=== PATIENT | female | born 1940 | race Caucasian/White ===

== ENCOUNTER → 2016-10-06 | Outpatient (CLI) | payer MEDICARE ==
[~2016-10-06] MED LIST: COLSALIDE IMPR0.6 MG PO; Catapres-Tts 10.1 MG PO; FLONASE 0.05% 121 EA NAS; HYDROCODONE BIT1 T11 PO; HYDRODIURIL25 MG PO; LORAZEPAM1 MG PO; LYRICA150 MG PO; Magnesium Oxid400 MG PO; OCUVITE1 TA1 PO; OSCAL,OYSTER S500 MG PO; PREDNICOT20 MG PO; SYNTHROID0.088 MG PO; TOPROL XL200 MG PO; VIBRAMYCIN100 MG PO; VICODIN 5/500 505 MG PO
== END | disposition home or self-care (01) ==
LOC: MRI 12:37
DX: M51.36 Other intervertebral disc degeneration, lumbar region (principal); M51.26 Other intervertebral disc displacement, lumbar region; M47.896 Other spondylosis, lumbar region; M40.46 Postural lordosis, lumbar region; M48.06 Spinal stenosis, lumbar region

== ENCOUNTER 2016-10-13 14:14 | Inpatient (IN) | payer MEDICARE ==
[~2016-10-13] VITALS: Ht 180.3 cm; Wt 93.0 kg
--- NOTE | ~2016-10-13 | WRIGHTHP ---
[place], [place] PATIENT HISTORY AND PHYSICAL EXAM NAME: DAVY SILVA [facility] #: [id number] UNIT #: [id number] ROOM: 506 DOCTOR: JILLIAN LLAMAS MD BIRTHDATE: [birth year] DOS: 10/13/2016 HISTORY OF PRESENT ILLNESS: This patient is 76 years old. The patient states that she has had some chest pain for the last 2 days, it came as sharp pain, sometimes feels like somebody jabbing inside her chest. She denies having any shortness of breath. Does not have any fever, cough, does not have any pleuritic pain or leg swelling. She was seen by Dr. Crowley recently, was started on allopurinol for gouty arthritis and the legs are feeling better. PAST MEDICAL HISTORY: Significant for: 1. Last hospitalization in 12/2005 for cholecystectomy. 2. History of pneumonia. 3. Benign hypertension. 4. Peripheral neuropathy. MEDICATIONS: She is on are allopurinol 300 mg daily, vitamin C 1000 units daily, atorvastatin 20 daily, Os-Jai 500 t.i.d., vitamin D 2000 units daily, cholestyramine 4 grams daily, Catapres 0.1 mg daily, levothyroxine 0.75 mcg daily, lorazepam 1 mg t.i.d., metoprolol 200 mg daily, Lyrica 150 b.i.d., Carafate 1 gram t.i.d. SOCIAL HISTORY: Nonsmoker. PHYSICAL EXAMINATION: GENERAL: She is awake and alert and oriented. VITAL SIGNS: Temperature 98.2, pulse is 72, respirations 20, blood pressure 112/68. NECK: Supple. No lymph nodes. LUNGS: Diminished breath sounds, clear. HEART: Regular. ABDOMEN: Obese, soft, nontender. EXTREMITIES: Without any edema, rebound tenderness over the chest wall. LABORATORY DATA: EKG is unremarkable. ASSESSMENT AND PLAN: 1. The patient presents with precordial chest pain. A Cardiology consultation was obtained. She has significant risk factors being hypertensive, will benefit from echocardiogram as well as a stress test, so far rule out HI protocol was done, shows no evidence of any ongoing issue. 2. Benign hypertension, controlled. If the stress test is negative, the patient should be able to go home and follow up with PCP. [place], [place] PATIENT HISTORY AND PHYSICAL EXAM NAME: DAVY SILVA UNIT #: [id number] ROOM: 506 DOCTOR: JILLIAN LLAMAS MD BIRTHDATE: [birth year] JILLIAN LLAMAS MD CM:HISPHYS:PATIENT HISTORY AND PHYSICAL EXAMINATION [id number] JILLIAN LLAMAS MD 10/14/16 1548 interface
[2016-10-13 14:22] VITALS: BP 160/61
[2016-10-13] MEDS ORDERED: VITAMIN C1000 M5 PO (14:30)
[2016-10-13] MEDS ORDERED: VITAMIN D32000 UNIT PO (14:30)
[2016-10-13] MEDS ORDERED: LIPITOR20 MG PO (14:30)
[2016-10-13 14:31] LABS: BASO % 0.3 % (0.0-1.0); EOS # 0.4 10*3/uL (0.0-0.4); HEMATOCRIT 37.9 % (37.0-47.0); HEMOGLOBIN 12.4 g/dl (12.0-16.0); LYMPH # 1.4 10*3/uL (1.3-4.4); LYMPH % 15.9 % (27.0-41.0); MEAN CELL VOLUME 88.6 fl (81.0-99.0); MEAN CORPUSCULAR HGB CONC 32.7 g/dl (33.0-37.0); MEAN PLATELET VOLUME 10.4 fl (9.6-12.3); MONO # 0.6 10*3/uL (0.1-1.0); MONO % 7.1 % (3.0-9.0); NEUT # 6.4 10*3/uL (2.3-7.9); NEUT % 72.2 % (47.0-73.0); PLATELET COUNT AUTOMATED 272 10*3/uL (130-400); RED BLOOD COUNT 4.28 10*6/uL (4.10-5.10); RED CELL DISTRI WIDTH 13.2 % (0-14.5); WHITE BLOOD COUNT 8.9 10*3/uL (4.8-10.8)
[2016-10-13] MEDS ORDERED: CHOLESTYRAMINE P4 GM PO (14:31)
[2016-10-13] MEDS ORDERED: ALLOPURINOL300 MG PO (14:31)
[2016-10-13] MEDS ORDERED: Carafate1 GM PO (14:32)
[2016-10-13 14:42] LABS: PROTHROMBIN TIME 10.9 SECONDS (9.0-12.4)
[2016-10-13 14:48] LABS: ALBUMIN 3.6 gm/dl (3.1-4.5); ALKALINE PHOSPHATASE 88 U/L (45-117); BILIRUBIN, TOTAL 0.5 mg/dl (0.2-1.0); BUN 19 mg/dl (7-24); CARBON DIOXIDE 25 mmol/L (21-32); CHLORIDE 105 mmol/L (98-107); EST GLOM FILT AFRICAN AMERICAN 53 ml/min; GLUCOSE 114 mg/dL (65-99); MAGNESIUM 1.5 mg/dL (1.5-2.1); POTASSIUM 4.4 mmol/L (3.5-5.1); SGOT/AST 19 IU/L (3-35); SGPT/ALT 19 U/L (12-78); SODIUM 141 mmol/L (136-145); TOTAL PROTEIN 7.5 gm/dL (6.4-8.2)
[2016-10-13 14:51] LABS: TROPONIN I < 0.015 ng/ml (<0.045)
[2016-10-13 15:30] VITALS: BP 142/80
[2016-10-13 16:04] VITALS: BP 129/80
[2016-10-13 16:47] VITALS: BP 132/84
[2016-10-13 18:10] VITALS: BP 165/78
[2016-10-13 20:00] VITALS: BP 143/68
[2016-10-14] VITALS: BP 128/78
[2016-10-14 08:00] VITALS: BP 118/70
[2016-10-14 12:00] VITALS: BP 112/68
== END 2016-10-14 15:37 | disposition left against medical advice (07) | DRG 206 ==
LOC: ED 14:14 → EDHOLD 16:10 → 5E 17:09
PROVIDERS: Emergency Medicine
DX: M94.0 Chondrocostal junction syndrome [Tietze] (principal); G62.9 Polyneuropathy, unspecified; Z53.21 Procedure and treatment not carried out due to patient leaving prior to being seen by health care provider; I10 Essential (primary) hypertension; Z87.01 Personal history of pneumonia (recurrent); Z79.899 Other long term (current) drug therapy

== ENCOUNTER → 2016-12-01 | Outpatient (CLI) | payer MEDICARE ==
[~2016-12-01] MED LIST changes: +ALLOPURINOL300 MG PO; +CHOLESTYRAMINE P4 GM PO; +Carafate1 GM PO; +LIPITOR20 MG PO; +VITAMIN C1000 M5 PO; +VITAMIN D32000 UNIT PO
[2016-12-01 12:58] LABS: BASO % 0.4 % (0.0-1.0); EOS # 0.2 10*3/uL (0.0-0.4); EOS % 1.9 % (1.0-4.0); HEMOGLOBIN 12.2 g/dl (12.0-16.0); IG # 0.1 10*3/uL (0.0-0.1); LYMPH # 1.3 10*3/uL (1.3-4.4); LYMPH % 12.3 % (27.0-41.0); MEAN CELL VOLUME 90.7 fl (81.0-99.0); MEAN CORPUSCULAR HGB 29.1 pg (27.0-31.0); MEAN CORPUSCULAR HGB CONC 32.1 g/dl (33.0-37.0); MEAN PLATELET VOLUME 10.4 fl (9.6-12.3); MONO # 0.8 10*3/uL (0.1-1.0); MONO % 7.3 % (3.0-9.0); NEUT # 8.3 10*3/uL (2.3-7.9); NEUT % 77.5 % (47.0-73.0); PLATELET COUNT AUTOMATED 296 10*3/uL (130-400); RED BLOOD COUNT 4.19 10*6/uL (4.10-5.10); RED CELL DISTRI WIDTH 14.3 % (0-14.5); WHITE BLOOD COUNT 10.7 10*3/uL (4.8-10.8)
[2016-12-01 13:25] LABS: BUN 17 mg/dl (7-24); CARBON DIOXIDE 27 mmol/L (21-32); CHLORIDE 107 mmol/L (98-107); EST GLOM FILT AFRICAN AMERICAN 52 ml/min; GLUCOSE 102 mg/dL (65-99); POTASSIUM 4.8 mmol/L (3.5-5.1); SODIUM 139 mmol/L (136-145); URIC ACID 4.5 mg/dL (2.6-6.0)
[2016-12-01 13:28] LABS: C-REACTIVE PROTEIN < 0.29 MG/DL (0-0.3)
== END | disposition home or self-care (01) ==
LOC: LAB 12:15
PROVIDERS: Podiatrist Foot & Ankle Surgery
DX: M10.071 Idiopathic gout, right ankle and foot (principal); R79.89 Other specified abnormal findings of blood chemistry

== ENCOUNTER → 2017-12-02 | Outpatient (CLI) | payer MEDICARE | END | disposition home or self-care (01) | LOC: CT 10:57 | DX: J32.9 Chronic sinusitis, unspecified (principal); I10 Essential (primary) hypertension; R05 Cough ==

== ENCOUNTER 2018-10-01 10:06 | Emergency (ER) | payer MEDICARE ==
[~2018-10-01] VITALS: Ht 180.3 cm; Wt 95.3 kg
[~2018-10-01 10:06] MED LIST changes: +AUGMENTIN 875-875 MG PO; +CLEOCIN HCL300 MG PO; +CLONIDINE HCL0.3 MG PO; +MEDROL DOSEPAK4 MG PO; +NORVASC2.5 MG PO; +TAMIFLU30 MG PO
[2018-10-01 11:12] LABS: BASO % 0.2 % (0.0-1.0); EOS # 0.1 10*3/uL (0.0-0.4); EOS % 1.1 % (1.0-4.0); HEMATOCRIT 41.7 % (37.0-47.0); HEMOGLOBIN 13.8 g/dl (12.0-16.0); LYMPH # 1.3 10*3/uL (1.3-4.4); LYMPH % 10.2 % (27.0-41.0); MEAN CELL VOLUME 89.3 fl (81.0-99.0); MEAN CORPUSCULAR HGB 29.6 pg (27.0-31.0); MEAN CORPUSCULAR HGB CONC 33.1 g/dl (33.0-37.0); MEAN PLATELET VOLUME 10.1 fl (9.6-12.3); MONO # 0.9 10*3/uL (0.1-1.0); MONO % 7.1 % (3.0-9.0); NEUT # 10.6 10*3/uL (2.3-7.9); NEUT % 80.8 % (47.0-73.0); PLATELET COUNT AUTOMATED 407 10*3/uL (130-400); RED BLOOD COUNT 4.67 10*6/uL (4.10-5.10); WHITE BLOOD COUNT 13.1 10*3/uL (4.8-10.8)
[2018-10-01 11:28] LABS: ALBUMIN 3.3 gm/dl (3.1-4.5); ALKALINE PHOSPHATASE 105 U/L (45-117); BUN 15 mg/dl (7-24); CHLORIDE 103 mmol/L (98-107); CREATININE 1.07 mg/dL (0.55-1.02); LIPASE 96 U/L (73-393); POTASSIUM 4.1 mmol/L (3.5-5.1); SGOT/AST 14 IU/L (3-35); SGPT/ALT 19 U/L (12-78); SODIUM 139 mmol/L (136-145); TOTAL PROTEIN 7.1 gm/dL (6.4-8.2)
[2018-10-01 12:07] LABS: BILIRUBIN NEGATIVE (NEGATIVE); BLOOD NEGATIVE (NEGATIVE); CLARITY SL CLOUDY (CLEAR); COLOR YELLOW (YELLOW); GLUCOSE NEGATIVE (NEGATIVE); KETONE NEGATIVE (NEGATIVE); LEUKO ESTERASE TRACE (NEGATIVE); NITRITE NEGATIVE (NEGATIVE); UROBILINOGEN 0.2 E.U./dl (0.2-1.0)
[2018-10-01 12:18] LABS: WBC 16-20 wbc/hpf (0-5)
[2018-10-01 12:20] LABS: BACTERIA 1+
[2018-10-01] MEDS ORDERED: SEPTDS PO (12:41)
[2018-10-05] MEDS ORDERED: NEURONTIN400 MG PO (12:45)
[2018-10-05] MEDS ORDERED: ULTRAM50 MG PO (12:46)
[2018-10-05] MEDS ORDERED: AMITRIPTYLINE50 MG PO (12:46)
[2018-10-07] MEDS ORDERED: LIDODERM1 EACH T (07:50)
== END 2018-10-01 12:58 | disposition home or self-care (01) ==
LOC: ED 10:06
PROVIDERS: Physician Assistant
DX: N39.0 Urinary tract infection, site not specified (principal); G89.29 Other chronic pain; R10.11 Right upper quadrant pain; R07.81 Pleurodynia; Z79.899 Other long term (current) drug therapy

== ENCOUNTER 2019-06-15 13:22 | Inpatient (IN) | payer MEDICARE ==
[~2019-06-15] VITALS: Ht 180.3 cm; Wt 95.8 kg
[~2019-06-15 13:22] MED LIST changes: +AMITRIPTYLINE50 MG PO; +LIDODERM1 EACH T; +NEURONTIN400 MG PO; +SEPTDS PO; +ULTRAM50 MG PO; -VITAMIN C1000 M5 PO; +VITAMIN C500 M8 PO
[2019-06-15 13:31] VITALS: BP 137/71
[2019-06-15 14:13] LABS: BASO % 0.4 % (0.0-1.0); EOS # 0.3 10*3/uL (0.0-0.4); EOS % 3.1 % (1.0-4.0); HEMOGLOBIN 12.4 g/dl (12.0-16.0); LYMPH # 1.3 10*3/uL (1.3-4.4); LYMPH % 12.7 % (27.0-41.0); MEAN CELL VOLUME 89.2 fl (81.0-99.0); MEAN CORPUSCULAR HGB 29.1 pg (27.0-31.0); MEAN CORPUSCULAR HGB CONC 32.6 g/dl (33.0-37.0); MEAN PLATELET VOLUME 10.2 fl (9.6-12.3); MONO % 9.4 % (3.0-9.0); NEUT # 7.8 10*3/uL (2.3-7.9); NEUT % 73.9 % (47.0-73.0); PLATELET COUNT AUTOMATED 355 10*3/uL (130-400); RED BLOOD COUNT 4.26 10*6/uL (4.10-5.10); RED CELL DISTRI WIDTH 13.3 % (0-14.5); WHITE BLOOD COUNT 10.6 10*3/uL (4.8-10.8)
[2019-06-15 14:17] VITALS: BP 132/68
[2019-06-15 14:29] LABS: ALBUMIN 3.2 gm/dl (3.1-4.5); ALKALINE PHOSPHATASE 89 U/L (45-117); BUN 22 mg/dl (7-24); CHLORIDE 105 mmol/L (98-107); CREATININE 1.41 mg/dL (0.55-1.02); POTASSIUM 4.7 mmol/L (3.5-5.1); SGOT/AST 19 IU/L (3-35); SGPT/ALT 22 U/L (12-78); SODIUM 138 mmol/L (136-145); TOTAL PROTEIN 6.5 gm/dL (6.4-8.2)
[2019-06-15 14:31] LABS: TROPONIN I < 0.015 ng/ml (<0.045)
[2019-06-15 14:32] LABS: BILIRUBIN NEGATIVE (NEGATIVE); BLOOD NEGATIVE (NEGATIVE); CLARITY CLEAR (CLEAR); COLOR YELLOW (YELLOW); GLUCOSE NEGATIVE (NEGATIVE); KETONE NEGATIVE (NEGATIVE); LEUKO ESTERASE 1+ (NEGATIVE); NITRITE NEGATIVE (NEGATIVE); SPECIFIC GRAVITY 1.015 (1.005-1.030); UROBILINOGEN 0.2 E.U./dl (0.2-1.0)
[2019-06-15 14:39] LABS: EPITHELIAL CELLS 16-20
[2019-06-15 15:50] VITALS: BP 128/61
[2019-06-15 16:25] VITALS: BP 181/84
--- NOTE | 2019-06-15 16:25 | NUR ---
A 79, admitted to , under the services of JILLIAN Hendricks MD with a diagnosis of CHF. Chief complaint is WEIGHT GAIN,SHORTNESS OF BREATH WALKING UP STAIRS AND CHILLING. Patient arrived via wheel chair from ER. Monitor applied. Initial assessment completed. Vital signs taken and recorded. JILLIAN HENDRICKS MD notified of admission to the unit. Orders received. See assessment for past medical history, medications and allergies. Patient and/or family oriented to unit. Clothing/patient valuable form completed. CORI ALEXIS
[2019-06-15] MEDS ORDERED: MINIPRESS1 M1 PO (17:06)
[2019-06-15] MEDS ORDERED: LYRICA150 M1 PO (17:07)
[2019-06-15] MEDS ORDERED: ALIVE WOMEN'S1 EAC2 PO (17:07)
[2019-06-15] MEDS ORDERED: MIRALAX17 GM PO (17:07)
[2019-06-15 20:00] VITALS: BP 148/68
--- NOTE | 2019-06-15 20:39 | NUR ---
MADE AWARE OF DDIMER AND CT OF CHEST RESULTS. STATED TO ORDER VQ SCAN, HEPARIN GTT PER PROTOCOL. ORDER IN PLACE PER WISHES
--- NOTE | 2019-06-15 22:15 | NUR ---
PATIENT MEDICATED WITH TYLENOL/ATIVAN FOR C/O ANXIOUS AND A HEADACHE. WILL MONITOR
[2019-06-15] MEDS ORDERED: AMITRIPTYLINE50 MG PO (22:20)
--- NOTE | 2019-06-15 22:30 | NUR ---
MADE AWARE THAT PATIENT FORGOT TO ADD ELAVIL TO HOME REC. STATED OK TO CONTINUE.
--- NOTE | 2019-06-15 22:47 | NUR ---
PATIENT REQUESTED MIRALAX AT THIS TIME FOR C/O CONSTIPATION.
--- NOTE | 2019-06-15 22:58 | NUR ---
IV started right arm with #20 protective cath after 0 attempts. Site prepped with Chloroprep. Sterile dressing applied. Patient tolerated procedure well. IV STARTED BY DAVY MCINYTRE. CANDI GUILLEN
--- NOTE | 2019-06-15 23:15 | NUR ---
TYLENOL AND ATIVAN EFFECTIVE
--- NOTE | 2019-06-15 23:49 | NUR ---
HEPARIN GTT INITIATED AT THIS TIME. PER POLICY PATIENT CALLS FOR BOLUS OF 5,000 UNITS. KG=98.5, GTT IS RUNNING AT 12U/KG/HR AT 11.8CC/HR. APTT WITH BE DRAWN AGAIN ON 06/160
[2019-06-16] VITALS: BP 156/76
--- NOTE | 2019-06-16 04:05 | NUR ---
PATIENT C/O OF HEADACHE AT THIS TIME. INFORMED THAT TYLENOL IS NOT AVAILABLE A T THIS TIME. PATIENT STATES SHE WOULD LIKE A DIFFERENT PILLOW, COLD COMPRESSION FOR FOREHEAD AND JERSON-CRYSTAL.REQUEST MET. PATIENT PLEASED AT THIS TIME.
[2019-06-16 06:07] LABS: BASO # 0.1 10*3/uL (0.0-0.1); BASO % 0.5 % (0.0-1.0); EOS # 0.3 10*3/uL (0.0-0.4); EOS % 3.2 % (1.0-4.0); HEMATOCRIT 38.3 % (37.0-47.0); HEMOGLOBIN 12.3 g/dl (12.0-16.0); LYMPH # 1.7 10*3/uL (1.3-4.4); LYMPH % 17.1 % (27.0-41.0); MEAN CELL VOLUME 90.1 fl (81.0-99.0); MEAN CORPUSCULAR HGB 28.9 pg (27.0-31.0); MEAN CORPUSCULAR HGB CONC 32.1 g/dl (33.0-37.0); MEAN PLATELET VOLUME 10.9 fl (9.6-12.3); MONO # 0.8 10*3/uL (0.1-1.0); MONO % 8.2 % (3.0-9.0); NEUT # 7.1 10*3/uL (2.3-7.9); NEUT % 70.5 % (47.0-73.0); PLATELET COUNT AUTOMATED 352 10*3/uL (130-400); RED BLOOD COUNT 4.25 10*6/uL (4.10-5.10); RED CELL DISTRI WIDTH 13.4 % (0-14.5); WHITE BLOOD COUNT 10.1 10*3/uL (4.8-10.8)
[2019-06-16 06:27] LABS: CREATININE 1.33 mg/dL (0.55-1.02); POTASSIUM 4.2 mmol/L (3.5-5.1)
--- NOTE | 2019-06-16 06:50 | NUR ---
PER HEPARIN PROTOCOL. APPT 82.8, HEPARIN GTT STOPPED AT THIS TIME, WILL RESUME IN 1 HOUR AT A LOWER DOSAGE.
--- NOTE | 2019-06-16 10:51 | NUR ---
ATIVAN GIVEN FOR HEADACHE STARTING BASE OF JAW TO FOREHEAD LIKE IT IS IN A VISE.. - RATES 02/08. TYLENOL LAST NIGHT INEFFECTIVE.. ROUTINE MEDS GIVEN WELL
[2019-06-16 12:00] VITALS: BP 130/75
--- NOTE | 2019-06-16 14:11 | NUR ---
HEADACHE IMPROVED BUT REMAINS - AFTER DISCUSSING NORMAL MEDS/CAFFIENE INTAKE THE PATIENT REALIZES SHE HASN'T HAD CAFFIENE IN A FEW DAYS. REGULAR COFFEE ORDERED
[2019-06-16 16:00] VITALS: BP 121/69
[2019-06-16 20:00] VITALS: BP 125/67
--- NOTE | 2019-06-16 21:34 | NUR ---
PATIENT MEDICATED WITH ATIVAN FOR C/O ANXIOUSNESS. WILL MONITOR
--- NOTE | 2019-06-16 22:34 | NUR ---
ATIVAN EFFECTIVE FOR ANXIETY
[2019-06-17] VITALS: BP 106/50
[2019-06-17 05:56] LABS: BASO % 0.2 % (0.0-1.0); EOS # 0.3 10*3/uL (0.0-0.4); EOS % 2.6 % (1.0-4.0); HEMATOCRIT 38.5 % (37.0-47.0); HEMOGLOBIN 12.4 g/dl (12.0-16.0); LYMPH # 1.6 10*3/uL (1.3-4.4); LYMPH % 12.9 % (27.0-41.0); MEAN CELL VOLUME 89.5 fl (81.0-99.0); MEAN CORPUSCULAR HGB 28.8 pg (27.0-31.0); MEAN CORPUSCULAR HGB CONC 32.2 g/dl (33.0-37.0); MEAN PLATELET VOLUME 10.7 fl (9.6-12.3); MONO # 1.3 10*3/uL (0.1-1.0); MONO % 10.3 % (3.0-9.0); NEUT # 8.9 10*3/uL (2.3-7.9); NEUT % 73.5 % (47.0-73.0); PLATELET COUNT AUTOMATED 362 10*3/uL (130-400); RED CELL DISTRI WIDTH 13.4 % (0-14.5); WHITE BLOOD COUNT 12.1 10*3/uL (4.8-10.8)
[2019-06-17 06:09] LABS: CREATININE 1.35 mg/dL (0.55-1.02); POTASSIUM 4.1 mmol/L (3.5-5.1)
[2019-06-17 11:57] VITALS: BP 134/98; BP 139/68
[2019-06-17 16:00] VITALS: BP 135/78
[2019-06-17 20:00] VITALS: BP 136/85
--- NOTE | 2019-06-17 22:00 | NUR ---
PATIENT MEDICATION WITH ATIVAN FOR C/O ANXIOUSNESS. WILL MONITOR
[2019-06-18] VITALS: BP 129/71
[2019-06-18] MEDS ORDERED: PREDNISONE5 MG PO (06:51)
[2019-06-18] MEDS ORDERED: LASIX40 MG PO (06:51)
[2019-06-18] MEDS ORDERED: CEFUROXIME AXE250 MG PO (06:51)
[2019-06-18] MEDS ORDERED: AUGMENTIN 875875 MG PO (07:14)
[2019-06-18 09:07] VITALS: BP 122/70
--- NOTE | 2019-06-18 09:10 | NUR ---
MEDICATED WITH PRN PO ATIVAN FOR ANXIETY.
--- NOTE | 2019-06-18 10:30 | NUR ---
PRN PO ATIVAN EFFECTIVE, PER PATIENT.
[2019-06-18 12:00] VITALS: BP 119/67
[2019-06-18 16:00] VITALS: BP 129/70
--- NOTE | 2019-06-18 16:34 | NUR ---
MEDICATED WITH PRN PO ATIVAN FOR ANXIETY.
--- NOTE | 2019-06-18 16:54 | NUR ---
PER DR. NIX, PATIENT OK TO DISCHARGE FROM CARDIOLOGY STANDPOINT. DR. LLAMAS NOTIFIED, ALSO NOTIFIED HER OF VQ SCAN RESULT THIS AM. PER DR. NIX ALL ECHOCARDIOGRAMS FROM THIS AM WERE READ, THIS RESULT WILL BE AVAILABLE TO VIEW TOMORROW. PER DR. LLAMAS OK TO PROCEED WITH DISCHARGE.
--- NOTE | 2019-06-18 17:09 | NUR ---
Discharge instructions reviewed with patient. Patient receptive and verbalizes understanding. Follow-up care arranged. Written instructions given to patient. BERENICE SANTOYO
--- NOTE | 2019-06-18 17:49 | NUR ---
PATIENT DISCHARGED TO FRONT LOBBY BY WHEELCHAIR, ACCOMPANIED BY [facility], FOR TRANSPORT HOME BY PRIVATE VEHICLE WITH FAMILY.
== END 2019-06-18 17:49 | disposition home or self-care (01) | DRG 291 ==
LOC: ED 13:22 → EDHOLD 15:25 → 4E 15:25
PROVIDERS: Nurse Practitioner Family; ADMIT Internal Medicine
DX: I11.0 Hypertensive heart disease with heart failure (principal); J18.9 Pneumonia, unspecified organism; N39.0 Urinary tract infection, site not specified; I16.9 Hypertensive crisis, unspecified; I50.33 Acute on chronic diastolic (congestive) heart failure; F41.1 Generalized anxiety disorder; G89.29 Other chronic pain; M54.5 Low back pain; K21.9 Gastro-esophageal reflux disease without esophagitis; K57.90 Diverticulosis of intestine, part unspecified, without perforation or abscess without bleeding; E03.9 Hypothyroidism, unspecified; B96.89 Other specified bacterial agents as the cause of diseases classified elsewhere; Z79.899 Other long term (current) drug therapy; Z97.10 Presence of artificial limb (complete) (partial), unspecified

== ENCOUNTER → 2019-08-27 | Outpatient (CLI) | payer MEDICARE ==
[~2019-08-27] MED LIST changes: +ALIVE WOMEN'S1 EAC2 PO; +AUGMENTIN 875875 MG PO; +BUMETANIDE1 MG PO; +CEFUROXIME AXE250 MG PO; +CETIRIZINE HYDR10 MG PO; +DILTIAZEM HCL120 M2 PO; +LASIX40 MG PO; +LEVOTHYROXINE75 MCG PO; +LYRICA150 M1 PO; +MINIPRESS1 M1 PO; +MIRALAX17 GM PO; +OMEPRAZOLE20 M2 PO; +POTASSIUM CHLO20 ME3 PO; +PREDNISONE5 MG PO; +TRELEGY ELLIPT1 EACH INH
[2019-08-27 14:49] LABS: HEMATOCRIT 36.2 % (37.0-47.0); MEAN CELL VOLUME 91.2 fl (81.0-99.0); MEAN CORPUSCULAR HGB 29.2 pg (27.0-31.0); PLATELET COUNT AUTOMATED 526 10*3/uL (130-400); RED BLOOD COUNT 3.97 10*6/uL (4.10-5.10); WHITE BLOOD COUNT 22.7 10*3/uL (4.8-10.8)
[2019-08-27 15:12] LABS: PLATELET SUFFICIENCY HIGH (NORMAL); TOTAL CELLS COUNTED 100 #CELLS
[2019-08-27 15:28] LABS: ALBUMIN 2.6 gm/dl (3.1-4.5); CREATININE 1.81 mg/dL (0.55-1.02); POTASSIUM 4.3 mmol/L (3.5-5.1); TOTAL PROTEIN 7.3 gm/dL (6.4-8.2)
[2019-08-27 15:34] LABS: FREE T4 1.42 ng/dl (0.76-1.46); THYROID STIM HORMONE (HS) 1.9 uIU/ml (0.358-4.75)
[2019-08-27 17:08] LABS: VITAMIN D, 25-HYDROXY 69.9 ng/mL (30-100)
== END | disposition home or self-care (01) ==
LOC: LAB 13:41
PROVIDERS: Internal Medicine
DX: Z00.00 Encounter for general adult medical examination without abnormal findings (principal); I10 Essential (primary) hypertension; E78.2 Mixed hyperlipidemia; E55.9 Vitamin D deficiency, unspecified; E03.9 Hypothyroidism, unspecified

== ENCOUNTER 2019-08-29 15:05 | Inpatient (IN) | payer MEDICARE ==
[~2019-08-29] VITALS: Ht 180.3 cm; Wt 97.2 kg
[~2019-08-29 15:05] MED LIST changes: -BUMETANIDE1 MG PO; -CETIRIZINE HYDR10 MG PO; -DILTIAZEM HCL120 M2 PO; -LEVOTHYROXINE75 MCG PO; -OMEPRAZOLE20 M2 PO; -POTASSIUM CHLO20 ME3 PO; -TRELEGY ELLIPT1 EACH INH
[2019-08-29 15:11] VITALS: BP 128/51
[2019-08-29 15:59] LABS: BASO % 0.1 % (0.0-1.0); EOS % 0.1 % (1.0-4.0); LYMPH # 1.3 10*3/uL (1.3-4.4); LYMPH % 7.1 % (27.0-41.0); MEAN CORPUSCULAR HGB 28.8 pg (27.0-31.0); MEAN CORPUSCULAR HGB CONC 32.4 g/dl (33.0-37.0); MEAN PLATELET VOLUME 10.8 fl (9.6-12.3); MONO # 1.2 10*3/uL (0.1-1.0); MONO % 6.5 % (3.0-9.0); NEUT # 15.7 10*3/uL (2.3-7.9); NEUT % 84.7 % (47.0-73.0); PLATELET COUNT AUTOMATED 524 10*3/uL (130-400); RED BLOOD COUNT 3.82 10*6/uL (4.10-5.10); RED CELL DISTRI WIDTH 13.1 % (0-14.5); WHITE BLOOD COUNT 18.5 10*3/uL (4.8-10.8)
[2019-08-29 16:17] LABS: ALBUMIN 2.5 gm/dl (3.1-4.5); ALKALINE PHOSPHATASE 101 U/L (45-117); BUN 28 mg/dl (7-24); CHLORIDE 106 mmol/L (98-107); CREATININE 1.57 mg/dL (0.55-1.02); POTASSIUM 4.6 mmol/L (3.5-5.1); SGOT/AST 19 IU/L (3-35); SGPT/ALT 19 U/L (12-78); SODIUM 139 mmol/L (136-145)
[2019-08-29 16:19] LABS: TROPONIN I < 0.015 ng/ml (<0.045)
[2019-08-29 16:30] VITALS: BP 122/65
[2019-08-29 17:44] VITALS: BP 127/58
[2019-08-29 17:45] LABS: BACTERIA TRACE; BILIRUBIN NEGATIVE (NEGATIVE); BLOOD NEGATIVE (NEGATIVE); CLARITY CLEAR (CLEAR); COLOR YELLOW (YELLOW); GLUCOSE NEGATIVE (NEGATIVE); KETONE NEGATIVE (NEGATIVE); LEUKO ESTERASE NEGATIVE (NEGATIVE); NITRITE NEGATIVE (NEGATIVE); RBC 0-2 rbc/hpf (0-2); UROBILINOGEN 0.2 E.U./dl (0.2-1.0)
[2019-08-29 20:00] VITALS: BP 142/72
--- NOTE | 2019-08-29 20:00 | NUR ---
A 79, admitted to , under the services of Dr. RAMÓN MILLARD,ERIK Valencia with a diagnosis of RENAL INSUFFICIENCY; PNEUMONIA. Chief complaint is MULTIPLE COMPLAINTS. Patient arrived via bed from ER. Monitor applied. Initial assessment completed. Vital signs taken and recorded. DR. RAMÓN MILLARD,ERIK Valencia notified of admission to the unit. Orders received. See assessment for past medical history, medications and allergies. Patient and/or family oriented to unit. [facility] visitation policy reviewed. Clothing/patient valuable form completed. OTILIA PATEL
[2019-08-29] MEDS ORDERED: LEVOTHYROXINE75 MCG PO (20:21)
[2019-08-29] MEDS ORDERED: DILTIAZEM HCL120 M2 PO (20:23)
[2019-08-29] MEDS ORDERED: BUMETANIDE1 MG PO (20:24)
[2019-08-29] MEDS ORDERED: NEURONTIN400 MG PO (20:26)
[2019-08-29] MEDS ORDERED: POTASSIUM CHLO20 ME3 PO (20:27)
[2019-08-29] MEDS ORDERED: OMEPRAZOLE20 M2 PO (20:27)
[2019-08-29] MEDS ORDERED: TRELEGY ELLIPT1 EACH INH (20:28)
[2019-08-29] MEDS ORDERED: CETIRIZINE HYDR10 MG PO (20:30)
[2019-08-30] VITALS: BP 139/72
--- NOTE | 2019-08-30 00:41 | NUR ---
PT MEDICATED WITH ATIVAN PER ORDER FOR COMPLAINTS OF ANXIETY. WILL MONITOR.
--- NOTE | 2019-08-30 02:26 | NUR ---
ATIVAN APPEARS EFFECTIVE, PT SLEEPING
--- NOTE | 2019-08-30 06:24 | NUR ---
CONSULT CALLED TO DR. LOTT
--- NOTE | 2019-08-30 09:00 | NUR ---
Forming Yardage Control Operator in to talk to patient. Patient states lives at home with her . There are 0 steps in the home. There is a chair lift. Physician: Dr. Aaron Crowley [facility]acy: [facility]: has had in the past but not currently Patient's level of ADLs: MINIMAL ASSIST Patient has working utilities: yes DME: walker, cane Follow-up physician's appointment after d/c: she prefers to make her own follow up appt after discharge Does patient want to access PORTAL?: no Discharge plan discussed with patient. She lives at home with her . She is independent in her ADLs and uses a walker or a cane for ambulation. Discussed home health care services and she denies any home needs at this time. When medically stable she will be discharged to home. She states her will provide transportation on discharge. ANA SETHI
[2019-08-30 10:15] LABS: BASO # 0.1 10*3/uL (0.0-0.1); BASO % 0.3 % (0.0-1.0); EOS # 0.1 10*3/uL (0.0-0.4); EOS % 0.7 % (1.0-4.0); HEMATOCRIT 35.7 % (37.0-47.0); LYMPH # 1.2 10*3/uL (1.3-4.4); LYMPH % 5.8 % (27.0-41.0); MEAN CELL VOLUME 89.3 fl (81.0-99.0); MEAN CORPUSCULAR HGB 28.8 pg (27.0-31.0); MEAN CORPUSCULAR HGB CONC 32.2 g/dl (33.0-37.0); MEAN PLATELET VOLUME 10.5 fl (9.6-12.3); MONO # 1.5 10*3/uL (0.1-1.0); MONO % 7.3 % (3.0-9.0); NEUT # 16.8 10*3/uL (2.3-7.9); NEUT % 84.5 % (47.0-73.0); PLATELET COUNT AUTOMATED 539 10*3/uL (130-400); RED CELL DISTRI WIDTH 13.1 % (0-14.5); WHITE BLOOD COUNT 19.9 10*3/uL (4.8-10.8)
--- NOTE | 2019-08-30 10:29 | NUR ---
INFORMED OF CONSULT. WILL SEE PT LATER TODAY.
[2019-08-30 11:35] LABS: CREATININE 1.49 mg/dL (0.55-1.02); POTASSIUM 4.2 mmol/L (3.5-5.1)
[2019-08-30 12:00] VITALS: BP 125/78
--- NOTE | 2019-08-30 12:42 | NUR ---
C-DIFF NEGATIVE, OK TO GIVE LOMOTIL PER . SEE MAR.
--- NOTE | 2019-08-30 15:49 | NUR ---
AWARE OF CT RESULTS. SAID HE WILL BE IN TO SEE PT TOMORROW. CURRENTLY ON 'S SERVICE.
[2019-08-30 16:00] VITALS: BP 131/76
--- NOTE | 2019-08-30 19:00 | NUR ---
REPORT RECEIVED. PT WATCHING TV AT THIS TIME, O2 INTACT.
[2019-08-30 20:00] VITALS: BP 120/62
--- NOTE | 2019-08-30 21:00 | NUR ---
PT WATCHING TV AT THIS TIME, IV ANTIBIOTICS INFUSING WITHOUT DIFFICULTY. NO COMPLAINTS AT THIS TIME. CALL LIGHT IN REACH
[2019-08-31] VITALS: BP 112/56
--- NOTE | 2019-08-31 | NUR ---
PT SLEEPING, CALL LIGHT IN REACH
--- NOTE | 2019-08-31 02:00 | NUR ---
PT APPEARS TO BE SLEEPING, O2 INTACT, RESPIRATIONS EASY AND UNLABORED. CALL LIGHT IN REACH
[2019-08-31 06:08] LABS: BASO # 0.1 10*3/uL (0.0-0.1); BASO % 0.3 % (0.0-1.0); EOS # 0.3 10*3/uL (0.0-0.4); EOS % 1.8 % (1.0-4.0); HEMATOCRIT 35.9 % (37.0-47.0); LYMPH # 1.8 10*3/uL (1.3-4.4); MEAN CELL VOLUME 89.1 fl (81.0-99.0); MEAN CORPUSCULAR HGB CONC 31.5 g/dl (33.0-37.0); MEAN PLATELET VOLUME 10.9 fl (9.6-12.3); MONO # 1.3 10*3/uL (0.1-1.0); MONO % 8.3 % (3.0-9.0); NEUT # 11.5 10*3/uL (2.3-7.9); NEUT % 75.6 % (47.0-73.0); PLATELET COUNT AUTOMATED 557 10*3/uL (130-400); RED BLOOD COUNT 4.03 10*6/uL (4.10-5.10); RED CELL DISTRI WIDTH 13.2 % (0-14.5); WHITE BLOOD COUNT 15.1 10*3/uL (4.8-10.8)
[2019-08-31 06:13] LABS: ALBUMIN 2.4 gm/dl (3.1-4.5); CREATININE 1.41 mg/dL (0.55-1.02); POTASSIUM 4.3 mmol/L (3.5-5.1)
[2019-08-31 06:14] LABS: TOTAL PROTEIN 6.7 gm/dL (6.4-8.2)
[2019-08-31 08:00] VITALS: BP 161/80
[2019-08-31 08:30] LABS: PTH INTACT 92.8 pg/mL (18.5-88.0); VITAMIN D, 25-HYDROXY 72.8 ng/mL (30-100)
--- NOTE | 2019-08-31 08:44 | NUR ---
OFF FLOOR FOR ULTRASOUND
--- NOTE | 2019-08-31 09:29 | NUR ---
BACK TO ROOM. NO COMPLAINTS.
[2019-08-31 12:00] VITALS: BP 154/74
--- NOTE | 2019-08-31 12:15 | NUR ---
C/O HEADACHE. TYLENOL GIVEN. CALL LIGHT IN REACH.
[2019-08-31 17:01] LABS: ACT PARTIAL THROMBO TIME 26.5 SECONDS (20.0-32.1); INTERNATIONAL NORM RATIO 1.1 (2.0-3.5)
[2019-08-31 17:06] VITALS: BP 130/65
--- NOTE | 2019-08-31 19:51 | NUR ---
24 HR chart check completed.
[2019-08-31 20:00] VITALS: BP 127/60
--- NOTE | 2019-08-31 20:00 | NUR ---
RESTING IN BED WITH NO ACUTE DISTRESS NOTED. RESPIRATIONS EASY. LUNGS DIMINISHED, CLEAR. PULSE OX 98% 2L. CALL LIGHT WITHIN REACH. NO VOICED COMPLAINTS.
--- NOTE | 2019-08-31 22:06 | NUR ---
REQUESTED AND RECEIVED ATIVAN PER PRN ORDER TO ASSIST WITH ANXIETY. CALL LIGHT WITHIN REACH. WILL MONITOR
[2019-09-01] VITALS: BP 100/51
--- NOTE | 2019-09-01 | NUR ---
MEDS APPEAR EFFECTIVE. SLEEPING. RESPIRATIONS EASY. VSS. CALL LIGHT WITHIN REACH.
--- NOTE | 2019-09-01 06:00 | NUR ---
SLEPT THROUGHOUT NIGHT WITH NO DISTRESS. RESPIRATIONS EASY. O2 IN USE. CALL LIGHT WITHIN REACH. NO VOICED COMPLAINTS THIS SHIFT
[2019-09-01 08:00] VITALS: BP 156/72
[2019-09-01 10:29] LABS: BASO # 0.1 10*3/uL (0.0-0.1); BASO % 0.4 % (0.0-1.0); EOS # 0.3 10*3/uL (0.0-0.4); EOS % 1.6 % (1.0-4.0); HEMATOCRIT 34.5 % (37.0-47.0); LYMPH # 1.1 10*3/uL (1.3-4.4); LYMPH % 7.2 % (27.0-41.0); MEAN CELL VOLUME 91.3 fl (81.0-99.0); MEAN CORPUSCULAR HGB 29.1 pg (27.0-31.0); MEAN CORPUSCULAR HGB CONC 31.9 g/dl (33.0-37.0); MEAN PLATELET VOLUME 10.3 fl (9.6-12.3); MONO # 1.1 10*3/uL (0.1-1.0); MONO % 7.2 % (3.0-9.0); NEUT # 12.8 10*3/uL (2.3-7.9); NEUT % 81.7 % (47.0-73.0); PLATELET COUNT AUTOMATED 494 10*3/uL (130-400); RED BLOOD COUNT 3.78 10*6/uL (4.10-5.10); RED CELL DISTRI WIDTH 13.2 % (0-14.5); WHITE BLOOD COUNT 15.6 10*3/uL (4.8-10.8)
[2019-09-01 12:00] VITALS: BP 117/59; BP 156/72
[2019-09-01 16:00] VITALS: BP 114/64
--- NOTE | 2019-09-01 19:42 | NUR ---
24 HR chart check completed.
[2019-09-01 20:00] VITALS: BP 160/79
--- NOTE | 2019-09-01 20:00 | NUR ---
RESTING IN BED WITH NO ACUTE DISTRESS NOTED. RESPIRATIONS EASY. LUNGS DIMINISHED, CLEAR. PULSE OX 100% 2L. DENIES FURTHER EPISODES OF DIARRHEA SINCE RECEIVING LOMOTIL X 1. CALL LIGHT WITHIN REACH. NO VOICED COMPLAINTS.
--- NOTE | 2019-09-01 22:18 | NUR ---
MEDICATED WITH ATIVAN PER PRN ORDER TO ASSIST WITH ANXIETY. WILL MONITOR
[2019-09-02] VITALS: BP 103/56
--- NOTE | 2019-09-02 | NUR ---
EARLIER MEDS APPEAR EFFECTIVE. SLEEPING. RESPIRATIONS EASY. VSS. CALL LIGHT WITHIN REACH
--- NOTE | 2019-09-02 02:51 | NUR ---
REQUESTED AND RECEIVED TYLENOL PER PRN ORDER FOR COMPLAINTS OF HEADACHE ABOVE RIGHT EYE RATING A 5. CALL LIGHT WITHIN REACH. WILL MONITOR FOR EFFECTIVENESS
--- NOTE | 2019-09-02 03:40 | NUR ---
MEDS EFFECTIVE. SLEEPING. RESPIRATIONS EASY. CALL LIGHT WITHIN REACH
--- NOTE | 2019-09-02 06:00 | NUR ---
RESTING WITH NO ACUTE DISTRESS NOTED. RESPIRATIONS EASY. VSS. CALL LIGHT WITHIN REACH. NO VOICED COMPLAINTS
[2019-09-02 06:52] LABS: ALBUMIN 2.3 gm/dl (3.1-4.5); CREATININE 1.29 mg/dL (0.55-1.02); POTASSIUM 4.6 mmol/L (3.5-5.1); TOTAL PROTEIN 6.1 gm/dL (6.4-8.2)
[2019-09-02 08:00] VITALS: BP 146/60
[2019-09-02 12:00] VITALS: BP 159/71
[2019-09-02 16:00] VITALS: BP 140/62
[2019-09-02 20:00] VITALS: BP 167/79
--- NOTE | 2019-09-02 20:00 | NUR ---
RESTING IN BED WATCHING TV WITH NO ACUTE DISTRESS NOTED. RESPIRATIONS EASY. LUNGS DIMINISHED, CLEAR. PULSE OX 97% 2L, TITRATED TO 1.5L. DISCUSSED NPO STATUS FOR TESTING IN AM, VOICED UNDERSTANDING. CALL LIGHT WITHIN REACH. NO VOICED COMPLAINTS
--- NOTE | 2019-09-02 20:05 | NUR ---
24 HR chart check completed.
--- NOTE | 2019-09-02 21:00 | NUR ---
REQUESTED AND RECEIVED ATIVAN PER PRN ORDER TO ASSIST WITH ANXIETY. CALL LIGHT WITHIN REACH. WILL MONTIOR FOR EFFECTIVENESS
[2019-09-03] VITALS (8 sets, daily range): BP systolic 101–166; BP diastolic 51–84
--- NOTE | 2019-09-03 | NUR ---
EARLIER MEDS APPEAR EFFECTIVE. SLEEPING. RESPIRATIONS EASY. VSS. CALL LIGHT WITHIN REACH
--- NOTE | 2019-09-03 06:00 | NUR ---
BATHED, NPO FOR BRONCH THIS AM
[2019-09-03 06:21] LABS: HEMATOCRIT 37.8 % (37.0-47.0); MEAN CORPUSCULAR HGB CONC 31.5 g/dl (33.0-37.0); MEAN PLATELET VOLUME 10.2 fl (9.6-12.3); PLATELET COUNT AUTOMATED 541 10*3/uL (130-400); RED BLOOD COUNT 4.11 10*6/uL (4.10-5.10); RED CELL DISTRI WIDTH 13.2 % (0-14.5); WHITE BLOOD COUNT 15.6 10*3/uL (4.8-10.8)
[2019-09-03 06:32] LABS: CREATININE 1.26 mg/dL (0.55-1.02)
--- NOTE | 2019-09-03 06:45 | NUR ---
ANXIOUS, C/O NAUSEA. MEDICATED WITH ZOFRAN IV PER PRN ORDER. WILL MONITOR
[2019-09-03 07:21] LABS: BASOPHILS 1 % (0-1); TOTAL CELLS COUNTED 100 #CELLS
[2019-09-03 07:22] LABS: PLATELET SUFFICIENCY NORMAL (NORMAL)
--- NOTE | 2019-09-03 09:01 | NUR ---
PT TO SURGERY FOR BRONCHOSCOPY.
--- NOTE | 2019-09-03 10:20 | NUR ---
PATIENT VOICES COMPLAINTS OF ANXIETY. OLIMPIA CONSTANTINO OIL WELL GUN PERFORATOR OPERATOR NOTIFIED.
--- NOTE | 2019-09-03 12:42 | NUR ---
PT MEDICATED WITH PRN TYLENOL FOR C/O A HEADACHE AFTER RETURNING FOR BRONCHOSCOPY.
[2019-09-03 13:23] LABS: BF LYMPHOCYTES 30 %; BF MACROPHAGES 12 %; BF NEUTROPHILS 58 %
--- NOTE | 2019-09-03 14:31 | NUR ---
PRN TYLENOL INEFFECTIVE PER PT. DR. MELGAR MADE AWARE. NEW ORDER RECIEVED. PT NOW MEDICATED WITH ONE TIME DILAUDID FOR CONTINUED C/O A HEADACHE.
--- NOTE | 2019-09-03 15:15 | NUR ---
PRN DILAUDID EFFECTIVE PER PT. PT RESTING QUIETLY IN BED.
--- NOTE | 2019-09-03 20:50 | NUR ---
24 HR chart check completed.
--- NOTE | 2019-09-03 21:00 | NUR ---
RESTING IN BED, ANXIOUS - MEDICATED WITH ATIVAN PER PRN ORDER. RESPIRATIONS EASY. LUNGS DIMINISHED, CLEAR. PULSE OX 100% 2L, TITRATED TO 2L. DRY NON-PROD COUGH. CALL LIGHT WITHIN REACH. WILL MONITOR
--- NOTE | 2019-09-03 22:50 | NUR ---
MEDICATED WITH TYLENOL PER PRN ORDER FOR COMPLAINTS OF LEFT ARM PAIN D/T INFILTRATE. CALL LIGHT WITHIN REACH. WILL MONITOR
[2019-09-04] VITALS: BP 153/72
--- NOTE | 2019-09-04 | NUR ---
EARLIER MEDS APPEAR EFFECTIVE. SLEEPING. RESPIRATIONS EASY. VSS. CALL LIGHT WITHIN REACH.
[2019-09-04 06:23] LABS: BASO # 0.1 10*3/uL (0.0-0.1); BASO % 0.4 % (0.0-1.0); EOS # 0.3 10*3/uL (0.0-0.4); HEMATOCRIT 35.8 % (37.0-47.0); LYMPH # 1.1 10*3/uL (1.3-4.4); LYMPH % 6.9 % (27.0-41.0); MEAN CELL VOLUME 92.3 fl (81.0-99.0); MEAN CORPUSCULAR HGB 28.4 pg (27.0-31.0); MEAN CORPUSCULAR HGB CONC 30.7 g/dl (33.0-37.0); MEAN PLATELET VOLUME 10.5 fl (9.6-12.3); MONO # 1.2 10*3/uL (0.1-1.0); MONO % 7.5 % (3.0-9.0); NEUT # 13.4 10*3/uL (2.3-7.9); NEUT % 81.8 % (47.0-73.0); PLATELET COUNT AUTOMATED 490 10*3/uL (130-400); RED BLOOD COUNT 3.88 10*6/uL (4.10-5.10); RED CELL DISTRI WIDTH 13.3 % (0-14.5); WHITE BLOOD COUNT 16.4 10*3/uL (4.8-10.8)
--- NOTE | 2019-09-04 06:35 | NUR ---
REQUESTED AND RECEIVED LOMOTIL AND ATIVAN PER PRN ORDER FOR COMPLAINTS OF DIARRHEA AND ANXIETY. CALL LIGHT WITHIN REACH. WILL MONITOR FOR EFFECTIVENESS
[2019-09-04 06:52] LABS: CREATININE 1.21 mg/dL (0.55-1.02); POTASSIUM 4.4 mmol/L (3.5-5.1)
[2019-09-04 08:00] VITALS: BP 142/63
[2019-09-04 11:08] LABS: ACID FAST SPEC PROCESSING Concentration (.)
[2019-09-04 12:00] VITALS: BP 124/60
[2019-09-04 16:00] VITALS: BP 132/61
[2019-09-04 20:00] VITALS: BP 150/66
--- NOTE | 2019-09-04 23:25 | NUR ---
MEDICATED WITH ATIVAN FOR C/O ANXIETY.
[2019-09-05] VITALS: BP 115/55
--- NOTE | 2019-09-05 02:00 | NUR ---
RESTING IN BED WITH EYES CLOSED; ATIVAN GIVEN EARLIER APPARENTLY EFFECTIVE. CALL LIGHT WITHIN REACH.
--- NOTE | 2019-09-05 06:17 | NUR ---
C/O DIARRHEA; MEDICATED WITH LOMOTIL PER PT'S REQUEST.
[2019-09-05 06:25] LABS: CREATININE 1.08 mg/dL (0.55-1.02); POTASSIUM 4.2 mmol/L (3.5-5.1)
[2019-09-05 06:29] LABS: BASO # 0.1 10*3/uL (0.0-0.1); BASO % 0.4 % (0.0-1.0); EOS # 0.4 10*3/uL (0.0-0.4); EOS % 2.2 % (1.0-4.0); HEMATOCRIT 36.4 % (37.0-47.0); LYMPH # 1.5 10*3/uL (1.3-4.4); LYMPH % 9.3 % (27.0-41.0); MEAN CELL VOLUME 91.9 fl (81.0-99.0); MEAN CORPUSCULAR HGB CONC 31.6 g/dl (33.0-37.0); MEAN PLATELET VOLUME 10.3 fl (9.6-12.3); MONO # 1.3 10*3/uL (0.1-1.0); MONO % 8.1 % (3.0-9.0); NEUT % 78.4 % (47.0-73.0); PLATELET COUNT AUTOMATED 470 10*3/uL (130-400); RED BLOOD COUNT 3.96 10*6/uL (4.10-5.10); RED CELL DISTRI WIDTH 13.2 % (0-14.5); WHITE BLOOD COUNT 16.5 10*3/uL (4.8-10.8)
[2019-09-05 08:00] VITALS: BP 154/76
--- NOTE | 2019-09-05 08:30 | NUR ---
Patient resting quietly with no c/o discomfort. Respirations easy and regular. Pt states Lomotil is effective at this time. But that pt had 4 BM's this am. Vital signs stable. No overt distress. OSMAN SCHULTZ R
--- NOTE | 2019-09-05 09:26 | NUR ---
Pt requested and was medicated with Ativan for c/o anxiety. call light in reach. will monitor
--- NOTE | 2019-09-05 10:00 | NUR ---
pt refused am dose of Zosyn. Dr Crowley and Dr Elizabeth made aware.
--- NOTE | 2019-09-05 10:15 | NUR ---
Ativan effective per pt. Will monitor
[2019-09-05] MEDS ORDERED: LEVAQUIN500 M2 PO (10:38)
--- NOTE | 2019-09-05 12:21 | NUR ---
PT MEDICATED WITH IMMODIUM PER ORDERS.
--- NOTE | 2019-09-05 13:08 | NUR ---
Discharge instructions reviewed with patient/family. Patient receptive and verbalizes understanding. Follow-up care arranged. Written instructions given to patient/family. OSMAN SCHULTZ
--- NOTE | 2019-09-05 13:08 | NUR ---
PT STATES IMMODIUM EFFECTIVE.
== END 2019-09-05 13:08 | disposition home or self-care (01) | DRG 871 ==
LOC: ED 15:05 → EDHOLD 18:24 → 4E 18:24
PROVIDERS: Emergency Medicine; Internal Medicine Critical Care Medicine; Internal Medicine Nephrology; ADMIT Internal Medicine
PROC: 0BC98ZZ Extirpation of Matter from Lingula Bronchus, Via Natural or Artificial Opening Endoscopic (ICD-10-PCS; principal; 2019-09-03)
PROC: 0B9C8ZX Drainage of Right Upper Lung Lobe, Via Natural or Artificial Opening Endoscopic, Diagnostic (ICD-10-PCS; principal; 2019-09-03)
PROC: 0BC68ZZ Extirpation of Matter from Right Lower Lobe Bronchus, Via Natural or Artificial Opening Endoscopic (ICD-10-PCS; principal; 2019-09-03)
PROC: 0BC18ZZ Extirpation of Matter from Trachea, Via Natural or Artificial Opening Endoscopic (ICD-10-PCS; principal; 2019-09-03)
PROC: 0BC38ZZ Extirpation of Matter from Right Main Bronchus, Via Natural or Artificial Opening Endoscopic (ICD-10-PCS; principal; 2019-09-03)
PROC: 0BC58ZZ Extirpation of Matter from Right Middle Lobe Bronchus, Via Natural or Artificial Opening Endoscopic (ICD-10-PCS; principal; 2019-09-03)
PROC: 0BC88ZZ Extirpation of Matter from Left Upper Lobe Bronchus, Via Natural or Artificial Opening Endoscopic (ICD-10-PCS; principal; 2019-09-03)
PROC: 0BC78ZZ Extirpation of Matter from Left Main Bronchus, Via Natural or Artificial Opening Endoscopic (ICD-10-PCS; principal; 2019-09-03)
PROC: 0BC48ZZ Extirpation of Matter from Right Upper Lobe Bronchus, Via Natural or Artificial Opening Endoscopic (ICD-10-PCS; principal; 2019-09-03)
PROC: 0BCB8ZZ Extirpation of Matter from Left Lower Lobe Bronchus, Via Natural or Artificial Opening Endoscopic (ICD-10-PCS; principal; 2019-09-03)
DX: A41.9 Sepsis, unspecified organism (principal); J18.9 Pneumonia, unspecified organism; N17.0 Acute kidney failure with tubular necrosis; E43 Unspecified severe protein-calorie malnutrition; J45.41 Moderate persistent asthma with (acute) exacerbation; F33.0 Major depressive disorder, recurrent, mild; I13.0 Hypertensive heart and chronic kidney disease with heart failure and stage 1 through stage 4 chronic kidney disease, or unspecified chronic kidney disease; I50.42 Chronic combined systolic (congestive) and diastolic (congestive) heart failure; E78.5 Hyperlipidemia, unspecified; M10.9 Gout, unspecified; K21.9 Gastro-esophageal reflux disease without esophagitis; R91.8 Other nonspecific abnormal finding of lung field; E66.01 Morbid (severe) obesity due to excess calories; Z66 Do not resuscitate; Z51.5 Encounter for palliative care; F41.1 Generalized anxiety disorder; G62.9 Polyneuropathy, unspecified; E77.8 Other disorders of glycoprotein metabolism; N18.9 Chronic kidney disease, unspecified; D47.3 Essential (hemorrhagic) thrombocythemia; E03.9 Hypothyroidism, unspecified; Z94.7 Corneal transplant status; Z90.49 Acquired absence of other specified parts of digestive tract; Z90.710 Acquired absence of both cervix and uterus; Z83.3 Family history of diabetes mellitus; Z80.9 Family history of malignant neoplasm, unspecified; Z79.899 Other long term (current) drug therapy; Z68.29 Body mass index [BMI] 29.0-29.9, adult

== ENCOUNTER 2019-09-07 11:50 | Emergency (ER) | payer MEDICARE ==
[~2019-09-07] VITALS: Wt 95.3 kg
[~2019-09-07 11:50] MED LIST changes: +BUMETANIDE1 MG PO; +CETIRIZINE HYDR10 MG PO; +DILTIAZEM HCL120 M2 PO; +LEVAQUIN500 M2 PO; +LEVOTHYROXINE75 MCG PO; +OMEPRAZOLE20 M2 PO; +POTASSIUM CHLO20 ME3 PO; +TRELEGY ELLIPT1 EACH INH
[2019-09-07 13:48] LABS: BASO % 0.2 % (0.0-1.0); EOS # 0.2 10*3/uL (0.0-0.4); EOS % 1.3 % (1.0-4.0); HEMATOCRIT 33.9 % (37.0-47.0); LYMPH # 1.4 10*3/uL (1.3-4.4); LYMPH % 9.1 % (27.0-41.0); MEAN CELL VOLUME 89.9 fl (81.0-99.0); MEAN CORPUSCULAR HGB 29.2 pg (27.0-31.0); MEAN CORPUSCULAR HGB CONC 32.4 g/dl (33.0-37.0); MEAN PLATELET VOLUME 9.7 fl (9.6-12.3); MONO # 1.1 10*3/uL (0.1-1.0); MONO % 7.5 % (3.0-9.0); NEUT # 12.1 10*3/uL (2.3-7.9); NEUT % 80.2 % (47.0-73.0); PLATELET COUNT AUTOMATED 410 10*3/uL (130-400); RED BLOOD COUNT 3.77 10*6/uL (4.10-5.10); RED CELL DISTRI WIDTH 13.2 % (0-14.5); WHITE BLOOD COUNT 15.1 10*3/uL (4.8-10.8)
[2019-09-07 14:02] LABS: ACT PARTIAL THROMBO TIME 26.2 SECONDS (20.0-32.1); INTERNATIONAL NORM RATIO 1.1 (2.0-3.5)
[2019-09-07 14:08] LABS: ALBUMIN 2.4 gm/dl (3.1-4.5); CREATININE 1.53 mg/dL (0.55-1.02); POTASSIUM 4.9 mmol/L (3.5-5.1); TOTAL PROTEIN 6.5 gm/dL (6.4-8.2)
[2019-09-07] MEDS ORDERED: ELIQUIS5 M1 PO (14:50)
== END 2019-09-07 15:41 | disposition home or self-care (01) ==
LOC: ED 11:50
PROVIDERS: Physician Assistant
DX: I82.402 Acute embolism and thrombosis of unspecified deep veins of left lower extremity (principal); F41.9 Anxiety disorder, unspecified; I10 Essential (primary) hypertension; E78.00 Pure hypercholesterolemia, unspecified; E03.9 Hypothyroidism, unspecified; M10.9 Gout, unspecified; Z79.899 Other long term (current) drug therapy

== ENCOUNTER → 2019-09-13 | Outpatient (CLI) | payer MEDICARE ==
[~2019-09-13] MED LIST changes: +ELIQUIS5 M1 PO
[2019-09-13 15:23] LABS: BASO % 0.2 % (0.0-1.0); EOS # 0.2 10*3/uL (0.0-0.4); EOS % 1.2 % (1.0-4.0); HEMATOCRIT 35.2 % (37.0-47.0); LYMPH # 1.4 10*3/uL (1.3-4.4); LYMPH % 9.5 % (27.0-41.0); MEAN CELL VOLUME 89.6 fl (81.0-99.0); MEAN CORPUSCULAR HGB 28.8 pg (27.0-31.0); MEAN CORPUSCULAR HGB CONC 32.1 g/dl (33.0-37.0); MEAN PLATELET VOLUME 10.4 fl (9.6-12.3); MONO # 1.4 10*3/uL (0.1-1.0); MONO % 9.6 % (3.0-9.0); NEUT # 11.8 10*3/uL (2.3-7.9); NEUT % 78.6 % (47.0-73.0); PLATELET COUNT AUTOMATED 350 10*3/uL (130-400); RED BLOOD COUNT 3.93 10*6/uL (4.10-5.10); RED CELL DISTRI WIDTH 13.8 % (0-14.5)
[2019-09-13 15:43] LABS: ALBUMIN 2.7 gm/dl (3.1-4.5); CREATININE 1.42 mg/dL (0.55-1.02); POTASSIUM 4.8 mmol/L (3.5-5.1); TOTAL PROTEIN 6.8 gm/dL (6.4-8.2)
== END | disposition home or self-care (01) ==
LOC: LAB 14:25
PROVIDERS: Internal Medicine
DX: D72.829 Elevated white blood cell count, unspecified (principal)

== ENCOUNTER → 2019-09-26 | Outpatient (CLI) | payer MEDICARE ==
[2019-09-26 15:16] LABS: BASO # 0.1 10*3/uL (0.0-0.1); BASO % 0.5 % (0.0-1.0); EOS # 0.4 10*3/uL (0.0-0.4); EOS % 4.1 % (1.0-4.0); HEMATOCRIT 35.5 % (37.0-47.0); LYMPH # 1.2 10*3/uL (1.3-4.4); LYMPH % 11.8 % (27.0-41.0); MEAN CELL VOLUME 90.3 fl (81.0-99.0); MEAN CORPUSCULAR HGB CONC 32.1 g/dl (33.0-37.0); MEAN PLATELET VOLUME 10.5 fl (9.6-12.3); MONO # 0.9 10*3/uL (0.1-1.0); NEUT # 7.7 10*3/uL (2.3-7.9); PLATELET COUNT AUTOMATED 413 10*3/uL (130-400); RED BLOOD COUNT 3.93 10*6/uL (4.10-5.10); RED CELL DISTRI WIDTH 14.6 % (0-14.5); WHITE BLOOD COUNT 10.3 10*3/uL (4.8-10.8)
[2019-09-26 15:32] LABS: ALBUMIN 2.9 gm/dl (3.1-4.5); CREATININE 1.51 mg/dL (0.55-1.02); POTASSIUM 4.6 mmol/L (3.5-5.1)
[2019-09-26 15:33] LABS: FREE T4 1.15 ng/dl (0.76-1.46)
[2019-09-26 15:38] LABS: THYROID STIM HORMONE (HS) 1.74 uIU/ml (0.358-4.75)
[2019-09-26 16:14] LABS: VITAMIN D, 25-HYDROXY 48.2 ng/mL (30-100)
== END | disposition home or self-care (01) ==
LOC: LAB 13:41 → CT 14:00
PROVIDERS: Internal Medicine Critical Care Medicine
DX: Z00.00 Encounter for general adult medical examination without abnormal findings (principal); R91.8 Other nonspecific abnormal finding of lung field; E55.9 Vitamin D deficiency, unspecified; E03.9 Hypothyroidism, unspecified; E11.9 Type 2 diabetes mellitus without complications; I25.10 Atherosclerotic heart disease of native coronary artery without angina pectoris

== ENCOUNTER → 2019-11-13 | Outpatient (CLI) | payer MEDICARE | END | disposition home or self-care (01) | LOC: CT 10:00 | DX: J84.9 Interstitial pulmonary disease, unspecified (principal); D17.9 Benign lipomatous neoplasm, unspecified; L98.9 Disorder of the skin and subcutaneous tissue, unspecified ==

== ENCOUNTER → 2019-11-28 | Outpatient (CLI) | payer MEDICARE | END | disposition home or self-care (01) | LOC: CARD 09:59 | DX: I35.1 Nonrheumatic aortic (valve) insufficiency (principal); I70.0 Atherosclerosis of aorta; I35.0 Nonrheumatic aortic (valve) stenosis; I38 Endocarditis, valve unspecified ==

== ENCOUNTER → 2019-12-18 | Outpatient (CLI) | payer MEDICARE ==
[2019-12-18 15:07] LABS: BASO % 0.3 % (0.0-1.0); EOS # 0.1 10*3/uL (0.0-0.4); EOS % 1.2 % (1.0-4.0); HEMATOCRIT 39.7 % (37.0-47.0); LYMPH # 1.7 10*3/uL (1.3-4.4); LYMPH % 14.4 % (27.0-41.0); MEAN CELL VOLUME 88.8 fl (81.0-99.0); MEAN CORPUSCULAR HGB 28.2 pg (27.0-31.0); MEAN CORPUSCULAR HGB CONC 31.7 g/dl (33.0-37.0); MEAN PLATELET VOLUME 10.8 fl (9.6-12.3); MONO % 8.5 % (3.0-9.0); NEUT # 8.6 10*3/uL (2.3-7.9); PLATELET COUNT AUTOMATED 431 10*3/uL (130-400); RED BLOOD COUNT 4.47 10*6/uL (4.10-5.10); RED CELL DISTRI WIDTH 14.1 % (0-14.5); WHITE BLOOD COUNT 11.5 10*3/uL (4.8-10.8)
[2019-12-18 15:18] LABS: URIC ACID 13.8 mg/dL (2.6-6.0)
== END ==
LOC: LAB 14:42
PROVIDERS: Podiatrist
DX: M10.071 Idiopathic gout, right ankle and foot (principal); M25.571 Pain in right ankle and joints of right foot; I10 Essential (primary) hypertension

== ENCOUNTER 2019-12-22 12:41 | Emergency (ER) | payer MEDICARE ==
[~2019-12-22] VITALS: Ht 180.3 cm; Wt 95.7 kg
[2019-12-22 13:24] LABS: BASO % 0.2 % (0.0-1.0); EOS # 0.1 10*3/uL (0.0-0.4); EOS % 1.2 % (1.0-4.0); LYMPH # 1.3 10*3/uL (1.3-4.4); LYMPH % 15.2 % (27.0-41.0); MEAN CELL VOLUME 88.2 fl (81.0-99.0); MEAN CORPUSCULAR HGB 28.8 pg (27.0-31.0); MEAN CORPUSCULAR HGB CONC 32.6 g/dl (33.0-37.0); MEAN PLATELET VOLUME 10.4 fl (9.6-12.3); MONO # 0.9 10*3/uL (0.1-1.0); MONO % 10.9 % (3.0-9.0); NEUT # 5.9 10*3/uL (2.3-7.9); NEUT % 71.8 % (47.0-73.0); PLATELET COUNT AUTOMATED 398 10*3/uL (130-400); RED BLOOD COUNT 4.31 10*6/uL (4.10-5.10); RED CELL DISTRI WIDTH 13.8 % (0-14.5); WHITE BLOOD COUNT 8.3 10*3/uL (4.8-10.8)
[2019-12-22 13:37] LABS: ACT PARTIAL THROMBO TIME 25.6 SECONDS (20.0-32.1)
[2019-12-22 13:39] LABS: ALBUMIN 3.3 gm/dl (3.1-4.5); CREATININE 2.36 mg/dL (0.55-1.02); POTASSIUM 4.1 mmol/L (3.5-5.1); TOTAL PROTEIN 6.9 gm/dL (6.4-8.2)
[2019-12-22] MEDS ORDERED: KEFLEX500 M1 PO (15:05)
[2019-12-22] MEDS ORDERED: PREDNISONE20 M1 PO (15:05)
== END 2019-12-22 17:15 | disposition home or self-care (01) ==
LOC: ED 12:41
PROVIDERS: Nurse Practitioner Family
DX: N17.9 Acute kidney failure, unspecified (principal); I80.9 Phlebitis and thrombophlebitis of unspecified site; I10 Essential (primary) hypertension; F41.9 Anxiety disorder, unspecified; E03.9 Hypothyroidism, unspecified; M10.9 Gout, unspecified; Z79.899 Other long term (current) drug therapy

== ENCOUNTER → 2020-02-13 | Outpatient (CLI) | payer MEDICARE ==
[~2020-02-13] MED LIST changes: +KEFLEX500 M1 PO; +PREDNISONE20 M1 PO
== END | disposition home or self-care (01) ==
LOC: CT 10:39
PROVIDERS: ATTEND Internal Medicine Critical Care Medicine
DX: R91.1 Solitary pulmonary nodule (principal); Z98.890 Other specified postprocedural states

== ENCOUNTER → 2020-04-04 | Outpatient (CLI) | payer MEDICARE ==
[~2020-04-04] MED LIST changes: +TORSEMIDE20 MG PO; +VICO75300 PO; +ZOFRAN4 MG PO
== END | disposition home or self-care (01) ==
LOC: RESCLI 09:12
PROVIDERS: ATTEND Family Medicine
DX: J45.909 Unspecified asthma, uncomplicated (principal); I13.0 Hypertensive heart and chronic kidney disease with heart failure and stage 1 through stage 4 chronic kidney disease, or unspecified chronic kidney disease; I50.9 Heart failure, unspecified; N18.30 Chronic kidney disease, stage 3 unspecified; E03.9 Hypothyroidism, unspecified; F41.1 Generalized anxiety disorder; K21.9 Gastro-esophageal reflux disease without esophagitis; F32.9 Major depressive disorder, single episode, unspecified; I82.409 Acute embolism and thrombosis of unspecified deep veins of unspecified lower extremity; M10.9 Gout, unspecified; G62.9 Polyneuropathy, unspecified; M85.80 Other specified disorders of bone density and structure, unspecified site; Z79.899 Other long term (current) drug therapy; Z88.8 Allergy status to other drugs, medicaments and biological substances

== ENCOUNTER 2020-05-13 11:24 | Observation (INO) | payer MEDICARE ==
[~2020-05-13] VITALS: Ht 180.3 cm; Wt 96.6 kg
[~2020-05-13 11:24] MED LIST changes: -TORSEMIDE20 MG PO; -VICO75300 PO; -ZOFRAN4 MG PO
[2020-05-13 11:35] VITALS: BP 153/72
[2020-05-13 12:08] LABS: HEMATOCRIT 37.7 % (37.0-47.0); MEAN CELL VOLUME 91.3 fl (81.0-99.0); MEAN CORPUSCULAR HGB 29.3 pg (27.0-31.0); MEAN CORPUSCULAR HGB CONC 32.1 g/dl (33.0-37.0); PLATELET COUNT AUTOMATED 280 10*3/uL (130-400); RED BLOOD COUNT 4.13 10*6/uL (4.10-5.10); RED CELL DISTRI WIDTH 14.4 % (0-14.5); WHITE BLOOD COUNT 14.5 10*3/uL (4.8-10.8)
[2020-05-13 12:25] LABS: ALBUMIN 3.1 gm/dl (3.1-4.5); ALKALINE PHOSPHATASE 127 U/L (45-117); BUN 36 mg/dl (7-24); CHLORIDE 104 mmol/L (98-107); CREATININE 1.66 mg/dL (0.55-1.02); PLATELET SUFFICIENCY NORMAL (NORMAL); POTASSIUM 3.9 mmol/L (3.5-5.1); SGOT/AST 22 IU/L (3-35); SGPT/ALT 24 U/L (12-78); SODIUM 142 mmol/L (136-145); TOTAL CELLS COUNTED 100 #CELLS
[2020-05-13 12:34] LABS: TROPONIN I < 0.015 ng/ml (<0.045)
[2020-05-13 15:18] VITALS: BP 169/89
[2020-05-13] MEDS ORDERED: TORSEMIDE20 MG PO (15:42)
[2020-05-13 18:34] VITALS: BP 153/84
[2020-05-13 20:59] VITALS: BP 153/84
[2020-05-14] VITALS (10 sets, daily range): BP systolic 124–170; BP diastolic 67–88
[2020-05-15] VITALS: BP 101/50
[2020-05-15 01:10] VITALS: BP 110/52
[2020-05-15 06:50] LABS: BASO % 0.2 % (0.0-1.0); EOS # 0.1 10*3/uL (0.0-0.4); EOS % 0.9 % (1.0-4.0); HEMATOCRIT 36.4 % (37.0-47.0); LYMPH # 1.4 10*3/uL (1.3-4.4); LYMPH % 11.2 % (27.0-41.0); MEAN CELL VOLUME 93.8 fl (81.0-99.0); MEAN CORPUSCULAR HGB 28.9 pg (27.0-31.0); MEAN CORPUSCULAR HGB CONC 30.8 g/dl (33.0-37.0); MEAN PLATELET VOLUME 10.8 fl (9.6-12.3); MONO # 1.4 10*3/uL (0.1-1.0); MONO % 10.9 % (3.0-9.0); NEUT # 9.8 10*3/uL (2.3-7.9); NEUT % 76.2 % (47.0-73.0); PLATELET COUNT AUTOMATED 275 10*3/uL (130-400); RED BLOOD COUNT 3.88 10*6/uL (4.10-5.10); RED CELL DISTRI WIDTH 14.3 % (0-14.5); WHITE BLOOD COUNT 12.8 10*3/uL (4.8-10.8)
[2020-05-15 07:04] LABS: CREATININE 1.47 mg/dL (0.55-1.02); POTASSIUM 3.6 mmol/L (3.5-5.1)
[2020-05-15 08:00] VITALS: BP 138/71
[2020-05-15] MEDS ORDERED: VICO75300 PO (08:40)
[2020-05-15] MEDS ORDERED: CEFUROXIME AXE250 MG PO (08:40)
[2020-05-15] MEDS ORDERED: ZOFRAN4 MG PO (08:40)
== END 2020-05-15 11:45 | disposition home or self-care (01) ==
LOC: ED 11:24 → EDHOLD 14:49 → 5E 05-14 09:41
PROVIDERS: Emergency Medicine; ADMIT Internal Medicine; ATTEND Internal Medicine
DX: S22.31XA Fracture of one rib, right side, initial encounter for closed fracture (principal); X58.XXXA Exposure to other specified factors, initial encounter; Y93.89 Activity, other specified; Y92.89 Other specified places as the place of occurrence of the external cause; Y99.8 Other external cause status; I11.0 Hypertensive heart disease with heart failure; I50.30 Unspecified diastolic (congestive) heart failure; G62.9 Polyneuropathy, unspecified; J44.9 Chronic obstructive pulmonary disease, unspecified; F41.1 Generalized anxiety disorder

== ENCOUNTER 2020-06-23 00:13 | Emergency (ER) | payer MEDICARE ==
[~2020-06-23] VITALS: Ht 172.7 cm; Wt 105.8 kg
[~2020-06-23 00:13] MED LIST changes: +TORSEMIDE20 MG PO; +VICO75300 PO; +ZOFRAN4 MG PO
== END 2020-06-23 03:05 ==
LOC: ED 00:13
DX: I46.9 Cardiac arrest, cause unspecified (principal); I10 Essential (primary) hypertension; F41.9 Anxiety disorder, unspecified; E78.00 Pure hypercholesterolemia, unspecified; E03.9 Hypothyroidism, unspecified; M10.9 Gout, unspecified; Z88.8 Allergy status to other drugs, medicaments and biological substances; Z79.899 Other long term (current) drug therapy; Z79.2 Long term (current) use of antibiotics; Z98.890 Other specified postprocedural states; Z90.710 Acquired absence of both cervix and uterus